=== PATIENT | female | born 1985 | race Caucasian/White ===

== ENCOUNTER 2016-12-30 07:59 | Emergency (ER) | payer OTHER ==
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
[~2016-12-30 07:59] MED LIST: ALBUTEROL17 GM INH; AMOXIL500 MG PO; AUGMENTIN400 MG PO; DOCUSATE SODIU100 MG PO; FLEXERIL10 MG PO; LORTAB 5/500 TA1 TA1 PO; MEDROL PO; NABUMETONE PO; NAPROSYN-EC500 M1 PO; NO MEDICATIONS; PHENERGAN25 MG PO; PREDNISONE PO; PREDNISONE10 MG/DOSE PO; PROMETHAZINE W118 M1 PO; ULTRAM PO; VICODIN 5/500 T1 TAB PO; VICOPROFEN 200-1 TAB PO; VOLTAREN75 MG PO; ZITHROMAX PO; ZOFRAN ODT4 MG PO
== END 2016-12-30 10:14 | disposition home or self-care (01) ==
LOC: SED 07:59
DX: S13.9XXA Sprain of joints and ligaments of unspecified parts of neck, initial encounter (principal); S20.219A Contusion of unspecified front wall of thorax, initial encounter; J45.909 Unspecified asthma, uncomplicated; Z88.6 Allergy status to analgesic agent; Z91.040 Latex allergy status; V43.52XA Car driver injured in collision with other type car in traffic accident, initial encounter
CPT/HCPCS: 71020; 72040; 99284